=== PATIENT | male | born 1970 | race Hispanic/Latino ===

== ENCOUNTER → 2023-10-25 | Outpatient (CLI) | payer BC | END | disposition home or self-care (01) | LOC: RAH 07:19 | PROVIDERS: ATTEND Internal Medicine Cardiovascular Disease | DX: J90 Pleural effusion, not elsewhere classified (principal); J98.11 Atelectasis; I10 Essential (primary) hypertension; R06.09 Other forms of dyspnea | CPT/HCPCS: 71046 ==

== ENCOUNTER → 2023-11-01 | Outpatient (CLI) | payer BC ==
[2023-11-01 09:31] LABS: INR 1.02 (0.85-1.15)
[2023-11-01 09:32] LABS: PARTIAL THROMBOPLASTIN TIME 27.2 SEC (26.3-35.5)
== END | disposition home or self-care (01) ==
LOC: RAH 07:11
PROVIDERS: ATTEND Internal Medicine Interventional Cardiology
DX: J90 Pleural effusion, not elsewhere classified (principal)
CPT/HCPCS: 36415; 76604; 85610; 85730

== ENCOUNTER → 2023-12-06 | Outpatient (CLI) | payer BC | END | disposition home or self-care (01) | LOC: RAH 07:52 | PROVIDERS: ATTEND Internal Medicine Cardiovascular Disease | DX: J98.11 Atelectasis (principal); R06.09 Other forms of dyspnea | CPT/HCPCS: 71046 ==